=== PATIENT | female | born 1955 | race Caucasian/White ===

== ENCOUNTER 2016-10-22 09:18 | Emergency (ER) | payer MEDICARE, MEDICAID ==
[~2016-10-22] VITALS: Ht 162.6 cm; Wt 84.0 kg
[~2016-10-22 09:18] MED LIST: CARI250T PO; LEVO25TA2 PO; LEVO50TA PO; OXYC15TA PO
[2016-10-22] MEDS ORDERED: METHOCARBAMOL 750 MG TABLET PO ONE (10:00)
[2016-10-22] MEDS ORDERED: ONDANSETRON 2MG/ML, 2ML IVPush ONE (10:00)
[2016-10-22] MEDS ORDERED: GABA400C PO (10:00)
[2016-10-22] MEDS ORDERED: GABA800T2 PO (10:00)
[2016-10-22] MEDS ORDERED: SODIUM CHLORIDE FLUSH 10ML SYR IVF ONE (10:00)
[2016-10-22] MEDS ORDERED: KETOROLAC 30 MG/1 ML IVPush ONE (10:00)
[2016-10-22] MEDS ORDERED: HYDROmorphone 1 MG/ML, 1ML ONE (10:15)
[2016-10-22] MEDS ORDERED: KETOROLAC 30 MG/1 ML ONE (10:15)
[2016-10-22] MEDS ORDERED: ONDANSETRON 2MG/ML, 2ML ONE (10:15)
[2016-10-22] MEDS ORDERED: METHOCARBAMOL 750 MG TABLET ONE (10:16)
[2016-10-22] MEDS: HYDROmorphone 1 MG/ML, 1ML IVPush PRN ×2 (10:28→12:02)
[2016-10-22 13:42] VITALS: BP 134/79
== END 2016-10-22 13:45 | disposition home or self-care (01) ==
LOC: ED 11:48
DX: M51.36 Other intervertebral disc degeneration, lumbar region (principal); G89.29 Other chronic pain; F31.9 Bipolar disorder, unspecified; F43.10 Post-traumatic stress disorder, unspecified; Z87.891 Personal history of nicotine dependence; Z88.2 Allergy status to sulfonamides
CPT/HCPCS: 72148; 96374; 96375; 96376; 99284; J1170; J1885; J2405

== ENCOUNTER 2017-08-17 21:59 | Emergency (ER) | payer MEDICARE, MEDICAID ==
[~2017-08-17] VITALS: Ht 154.9 cm; Wt 87.8 kg
[~2017-08-17 21:59] MED LIST changes: +GABA400C PO; +GABA800T2 PO
[2017-08-17 22:01] VITALS: BP 181/133
[2017-08-17] MEDS ORDERED: MORPHINE SULFATE 4 MG/ML, 1ML IVPush PRN (22:30)
[2017-08-17] MEDS ORDERED: ONDANSETRON 2MG/ML, 2ML IVPush ONE (22:30)
[2017-08-17] MEDS ORDERED: SODIUM CHLORIDE 0.9% 1,000ML IVBOLUS ONE (22:30)
[2017-08-17 22:49] LABS: ALANINE AMINOTRANSFERASE 43 U/L (12-78); ALBUMIN 4.8 g/dL (3.4-5.0); ANION GAP 7 mmol/L (5-15); CALCIUM 9.1 mg/dL (8.5-10.1); CHLORIDE 107 mmol/L (98-107)
[2017-08-17 22:51] LABS: ALKALINE PHOSPHATASE 78 U/L (45-117); BILIRUBIN,TOTAL 0.5 mg/dL (0.2-1.0); CREATININE 0.87 mg/dL (0.55-1.02); TOTAL PROTEIN 8.2 g/dL (6.4-8.2)
[2017-08-17 23:07] LABS: BASOPHILS # (AUTO) 0.01 x10^3/uL (0-0.1); BASOPHILS % (AUTO) 0 % (0-1); EOSINOPHILS # (AUTO) 0.02 x10^3/uL (0-0.4); EOSINOPHILS % (AUTO) 0 % (1-7); LYMPHOCYTES # (AUTO) 0.74 x10^3/uL (1-3.4); LYMPHOCYTES % (AUTO) 10 % (22-44); MD SCAN; MEAN CORPUSCULAR HEMOGLOBIN 30.7 pg (27.0-34.8); MEAN CORPUSCULAR HGB CONC 33.9 g/dL (32.4-35.8); MEAN CORPUSCULAR VOLUME 90.7 fL (80-100); MEAN PLATELET VOLUME 9.3 fL (7.4-10.4); MONOCYTES # (AUTO) 0.12 x10^3/uL (0.2-0.8); MONOCYTES % (AUTO) 2 % (2-9); NEUTROPHILS # (AUTO) 6.73 x10^3/uL (1.8-6.8); NEUTROPHILS % (AUTO) 88 % (42-75); PLATELET COUNT 225 x10^3/uL (130-400); RED BLOOD COUNT 4.32 x10^6/uL (3.82-5.3); RED CELL DISTRIBUTION WIDTH 14.5 % (9.6-15.2)
[2017-08-17] MEDS ORDERED: MORPHINE SULFATE 4 MG/ML, 1ML ONE (23:21)
[2017-08-17] MEDS ORDERED: ONDANSETRON 2MG/ML, 2ML ONE (23:22)
== END 2017-08-18 00:08 | disposition home or self-care (01) ==
LOC: ED 23:59
DX: S39.012A Strain of muscle, fascia and tendon of lower back, initial encounter (principal); W10.9XXA Fall (on) (from) unspecified stairs and steps, initial encounter; Y93.89 Activity, other specified; Y92.009 Unspecified place in unspecified non-institutional (private) residence as the place of occurrence of the external cause; Y99.8 Other external cause status; S16.1XXA Strain of muscle, fascia and tendon at neck level, initial encounter
CPT/HCPCS: 36415; 72110; 72125; 80053; 85025; 96361; 96374; 96375; 99285; J2405; J7030

== ENCOUNTER → 2018-11-25 | Outpatient (CLI) | payer MEDICARE, MEDICAID ==
[~2018-11-25] MED LIST changes: +FENTANYL PF 100 MCG/2ML ONE; +FLUMAZENIL 0.1 MG/1 ML, 5ML ONE; -GABA800T2 PO; +GABA800T5 PO; +MIDAZOLAM 1 MG/ML, 5ML ONE; +NALOXONE 1 MG/ML, 2ML ONE
== END | disposition home or self-care (01) ==
LOC: RAD 12:28
PROVIDERS: ATTEND Nurse Practitioner Primary Care
DX: M47.812 Spondylosis without myelopathy or radiculopathy, cervical region (principal); M50.30 Other cervical disc degeneration, unspecified cervical region; M50.222 Other cervical disc displacement at C5-C6 level; M50.223 Other cervical disc displacement at C6-C7 level
CPT/HCPCS: 70551; 72050; 72141; 99156; 99157; J2250; J3010; J2310

== ENCOUNTER 2019-08-25 23:31 | Inpatient (IN) | payer MEDICARE, MEDICAID ==
[~2019-08-25] VITALS: Ht 162.6 cm; Wt 56.0 kg
[~2019-08-25 23:31] MED LIST changes: +ACID1TAB7 PO; +FAMO20TA7 PO; -FENTANYL PF 100 MCG/2ML ONE; -FLUMAZENIL 0.1 MG/1 ML, 5ML ONE; +HYDR25SU3 PR; +LORA-445 PO; +MAGN400T50 PO; +MEGE40TA3 PO; -MIDAZOLAM 1 MG/ML, 5ML ONE; -NALOXONE 1 MG/ML, 2ML ONE; +OXYC5TAB3 PO; +TRAZ50TA66 PO
[2019-08-25] MEDS ORDERED: HYDROmorphone 1 MG/ML, 1ML INJ ONE (23:46)
[2019-08-25 23:50] LABS: BASOPHILS # (AUTO) 0.03 x10^3/uL (0-0.1); BASOPHILS % (AUTO) 1 % (0-1); EOSINOPHILS # (AUTO) 0.17 x10^3/uL (0-0.4); EOSINOPHILS % (AUTO) 4 % (1-7); LYMPHOCYTES # (AUTO) 1.65 x10^3/uL (1-3.4); LYMPHOCYTES % (AUTO) 34 % (22-44); MD NO; MEAN CORPUSCULAR HEMOGLOBIN 31.7 pg (27.0-34.8); MEAN CORPUSCULAR HGB CONC 33.3 g/dL (32.4-35.8); MEAN CORPUSCULAR VOLUME 95.1 fL (80-100); MEAN PLATELET VOLUME 8.1 fL (7.4-10.4); MONOCYTES # (AUTO) 0.33 x10^3/uL (0.2-0.8); MONOCYTES % (AUTO) 7 % (2-9); NEUTROPHILS # (AUTO) 2.64 x10^3/uL (1.8-6.8); NEUTROPHILS % (AUTO) 55 % (42-75); PLATELET COUNT 269 x10^3/uL (130-400); RED BLOOD COUNT 3.87 x10^6/uL (3.82-5.3); RED CELL DISTRIBUTION WIDTH 15.9 % (9.6-15.2)
[2019-08-25] MEDS: HYDROmorphone 2 MG/ML, 1ML IVPush PRN (23:55)
[2019-08-26] LABS: ALANINE AMINOTRANSFERASE 14 U/L (12-78); ALBUMIN 3.9 g/dL (3.4-5.0); ANION GAP 8 mmol/L (5-15); CALCIUM 9.2 mg/dL (8.5-10.1); CHLORIDE 111 mmol/L (98-107); CREATININE 0.82 mg/dL (0.55-1.02)
[2019-08-26] MEDS ORDERED: SODIUM CHLORIDE 0.9% 1,000ML IVBOLUS ONE
[2019-08-26] MEDS ORDERED: SODIUM CHLORIDE FLUSH 10ML SYR IVF ONE
[2019-08-26] MEDS ORDERED: ONDANSETRON 2MG/ML, 2ML IVPush ONE
[2019-08-26 00:02] LABS: ALKALINE PHOSPHATASE 68 U/L (45-117); BILIRUBIN,TOTAL 0.3 mg/dL (0.2-1.0)
--- NOTE | 2019-08-26 00:19 | NUR ---
Assisted pt to bedside commode. Vitals monitors in place.
[2019-08-26 00:35] LABS: MICROSCOPIC INDICATED
[2019-08-26 00:42] LABS: CULTURE INDICATED? NO
[2019-08-26] MEDS ORDERED: OMNIPAQUE 350 MG/ML, 100ML BOTTLE ONE (00:46)
[2019-08-26 01:22] LABS: CLOSTRIDIUM DIFFICILE ANTIGEN NEGATIVE; CLOSTRIDIUM DIFFICILE TOXIN NEGATIVE (Negative)
[2019-08-26] MEDS ORDERED: HYDROmorphone 1 MG/ML, 1ML INJ ONE (01:26)
[2019-08-26] MEDS: HYDROmorphone 2 MG/ML, 1ML IVPush PRN (01:28)
--- NOTE | 2019-08-26 01:28 | NUR ---
Pt in jose angel, c/o pain 03/22. Medicated per SEP.
[2019-08-26] MEDS ORDERED: AMOX1TAB12 PO (02:37)
[2019-08-26] MEDS ORDERED: HYDR-826 PO (02:38)
[2019-08-26] MEDS ORDERED: CLON1TAB PO (02:39)
[2019-08-26 03:00] VITALS: BP 145/88
[2019-08-26] MEDS ORDERED: POLYETHYLENE GLYCOL 17 GM PACKET PO PRN (03:00)
[2019-08-26] MEDS ORDERED: ONDANSETRON ODT 4 MG PO PRN (03:00)
[2019-08-26] MEDS ORDERED: PROMETHAZINE 25 MG/ML, 1ML IM PRN (03:00)
[2019-08-26] MEDS ORDERED: DOCUSATE 100 MG CAPSULE PO PRN (03:00)
[2019-08-26] MEDS ORDERED: ONDANSETRON 2MG/ML, 2ML IVPush PRN (03:00)
[2019-08-26] MEDS ORDERED: hydrALAzine 20 MG/ML, 1ML IVPush PRN (03:00)
[2019-08-26] MEDS ORDERED: D5%-0.9% NACL 1,000 ML IV SCH (03:00)
[2019-08-26] MEDS: morphine SULFATE 10 MG/ML, 1ML IVPush PRN ×4 (03:23→14:25)
[2019-08-26] MEDS: ENOXAPARIN 40 MG/0.4 ML SQ SCH (03:25)
[2019-08-26 03:27] LABS: FREE T4 (FREE THYROXINE) 1.17 ng/dL (0.76-1.46)
[2019-08-26] MEDS: OXYcodone IR 5MG TABLET PO PRN ×4 (04:41→19:28)
[2019-08-26 04:48] LABS: MICROSCOPIC INDICATED
[2019-08-26 04:58] LABS: CULTURE INDICATED? NO
[2019-08-26 10:22] VITALS: BP 116/75
[2019-08-26] MEDS: D5%-0.45NACL+KCL 20MEQ 1,000 ML IV SCH ×2 (12:51→23:26)
[2019-08-26 16:49] VITALS: BP 130/76
[2019-08-26] MEDS: KETOROLAC 30 MG/1 ML IVPush SCH (17:58)
[2019-08-26] MEDS: ACETAMINOPHEN 500 MG TABLET PO SCH ×2 (17:58→21:25)
[2019-08-26 19:46] VITALS: BP 123/76
[2019-08-26] MEDS: TRAZODONE 50MG TABLET PO PRN (21:25)
[2019-08-26] MEDS: MORPHINE SULFATE 4 MG/ML, 1ML IVPush PRN (22:28)
[2019-08-27 00:19] VITALS: BP 114/70
[2019-08-27] MEDS: KETOROLAC 30 MG/1 ML IVPush SCH ×5 (00:24→23:56)
[2019-08-27] MEDS: OXYcodone IR 5MG TABLET PO PRN ×5 (02:47→20:43)
[2019-08-27] MEDS: ENOXAPARIN 40 MG/0.4 ML SQ SCH (03:00)
[2019-08-27 06:31] LABS: CHLORIDE 110 mmol/L (98-107)
[2019-08-27 06:42] LABS: ALANINE AMINOTRANSFERASE 8 U/L (12-78); ALBUMIN 3.1 g/dL (3.4-5.0); ALKALINE PHOSPHATASE 50 U/L (45-117); ANION GAP 6 mmol/L (5-15); BILIRUBIN,TOTAL 0.6 mg/dL (0.2-1.0); CALCIUM 8.6 mg/dL (8.5-10.1); CHOL/HDL RATIO 1.9; CHOLESTEROL, TOTAL 124 mg/dL (140-239); CREATININE 0.69 mg/dL (0.55-1.02); HDL CHOL % 53 % (28-40); HDL CHOLESTEROL (DIRECT) 66 mg/dL (40-60); LDL CHOLESTEROL,CALCULATED 42 mg/dL (54-169); LDL/HDL RATIO 0.6 (0.5-3.0); TOTAL PROTEIN 5.6 g/dL (6.4-8.2); TRIGLYCERIDES 81 mg/dL (50-200); VLDL CHOLESTEROL 16 mg/dL (0-25)
[2019-08-27 06:51] LABS: BASOPHILS # (AUTO) 0.04 x10^3/uL (0-0.1); BASOPHILS % (AUTO) 1 % (0-1); EOSINOPHILS % (AUTO) 7 % (1-7); LYMPHOCYTES # (AUTO) 1.61 x10^3/uL (1-3.4); LYMPHOCYTES % (AUTO) 37 % (22-44); MD SCAN; MEAN CORPUSCULAR HEMOGLOBIN 31.8 pg (27.0-34.8); MEAN CORPUSCULAR HGB CONC 33.3 g/dL (32.4-35.8); MEAN CORPUSCULAR VOLUME 95.6 fL (80-100); MEAN PLATELET VOLUME 8.3 fL (7.4-10.4); MONOCYTES # (AUTO) 0.29 x10^3/uL (0.2-0.8); MONOCYTES % (AUTO) 7 % (2-9); NEUTROPHILS % (AUTO) 48 % (42-75); PLATELET COUNT 209 x10^3/uL (130-400); RED BLOOD COUNT 3.23 x10^6/uL (3.82-5.3); RED CELL DISTRIBUTION WIDTH 15.9 % (9.6-15.2)
[2019-08-27] MEDS: LACTOBACILLUS CHEW TABLET PO SCH ×4 (08:30→20:02)
[2019-08-27] MEDS: D5%-0.45NACL+KCL 20MEQ 1,000 ML IV SCH ×2 (08:30→23:12)
[2019-08-27] MEDS: ACETAMINOPHEN 500 MG TABLET PO SCH ×3 (08:30→21:00)
[2019-08-27] MEDS: MORPHINE SULFATE 4 MG/ML, 1ML IVPush PRN ×2 (08:31→17:54)
[2019-08-27 08:36] VITALS: BP 133/81
[2019-08-27] MEDS: LOPERAMIDE 2 MG CAPSULE PO PRN (10:56)
[2019-08-27 13:52] VITALS: BP 122/77
[2019-08-27 20:00] VITALS: BP 132/80
[2019-08-27] MEDS: ACETAMINOPHEN 325 MG TABLET PO PRN (20:03)
[2019-08-27] MEDS: TRAZODONE 50MG TABLET PO PRN (23:57)
[2019-08-28 00:06] VITALS: BP 128/65
[2019-08-28] MEDS: ACETAMINOPHEN 325 MG TABLET PO PRN (00:56)
[2019-08-28] MEDS: OXYcodone IR 5MG TABLET PO PRN ×3 (00:56→09:36)
[2019-08-28] MEDS: ENOXAPARIN 40 MG/0.4 ML SQ SCH (02:04)
[2019-08-28] MEDS: MORPHINE SULFATE 4 MG/ML, 1ML IVPush PRN (02:12)
[2019-08-28] MEDS: LOPERAMIDE 2 MG CAPSULE PO PRN (05:09)
[2019-08-28 06:11] LABS: BASOPHILS # (AUTO) 0.05 x10^3/uL (0-0.1); BASOPHILS % (AUTO) 1 % (0-1); EOSINOPHILS # (AUTO) 0.28 x10^3/uL (0-0.4); EOSINOPHILS % (AUTO) 5 % (1-7); LYMPHOCYTES # (AUTO) 1.53 x10^3/uL (1-3.4); LYMPHOCYTES % (AUTO) 29 % (22-44); MD NO; MEAN CORPUSCULAR HEMOGLOBIN 32.4 pg (27.0-34.8); MEAN CORPUSCULAR HGB CONC 34.2 g/dL (32.4-35.8); MEAN CORPUSCULAR VOLUME 94.9 fL (80-100); MEAN PLATELET VOLUME 8.3 fL (7.4-10.4); MONOCYTES # (AUTO) 0.45 x10^3/uL (0.2-0.8); MONOCYTES % (AUTO) 9 % (2-9); NEUTROPHILS # (AUTO) 2.98 x10^3/uL (1.8-6.8); NEUTROPHILS % (AUTO) 56 % (42-75); PLATELET COUNT 204 x10^3/uL (130-400); RED BLOOD COUNT 3.28 x10^6/uL (3.82-5.3); RED CELL DISTRIBUTION WIDTH 15.2 % (9.6-15.2)
[2019-08-28] MEDS: LACTOBACILLUS CHEW TABLET PO SCH ×2 (06:16→09:36)
[2019-08-28] MEDS: KETOROLAC 30 MG/1 ML IVPush SCH ×2 (06:17→10:55)
[2019-08-28 06:22] LABS: ALBUMIN 3.2 g/dL (3.4-5.0); ANION GAP 5 mmol/L (5-15); CALCIUM 8.2 mg/dL (8.5-10.1); CHLORIDE 114 mmol/L (98-107)
[2019-08-28 06:25] LABS: ALANINE AMINOTRANSFERASE 11 U/L (12-78); ALKALINE PHOSPHATASE 56 U/L (45-117); BILIRUBIN,TOTAL 0.3 mg/dL (0.2-1.0); CREATININE 0.74 mg/dL (0.55-1.02); TOTAL PROTEIN 5.9 g/dL (6.4-8.2)
[2019-08-28 07:47] VITALS: BP 130/62
[2019-08-28] MEDS: ACETAMINOPHEN 500 MG TABLET PO SCH (09:00)
[2019-08-28] MEDS: D5%-0.45NACL+KCL 20MEQ 1,000 ML IV SCH (09:00)
[2019-08-28] MEDS ORDERED: ACET325T26 PO (09:19)
[2019-08-28] MEDS ORDERED: LOPE2CAP PO (09:19)
[2019-08-28] MEDS ORDERED: OXYC5TAB3 PO (09:19)
== END 2019-08-28 13:00 | disposition home health service (06) | DRG 641 ==
LOC: ED 08-26 01:48 → EDIP 08-26 02:18 → 4WST 08-26 02:50 → DCLOUNGE 08-28 12:51
PROVIDERS: ADMIT Internal Medicine; ATTEND Family Medicine
DX: E86.0 Dehydration (principal); F31.9 Bipolar disorder, unspecified; F41.1 Generalized anxiety disorder; F43.10 Post-traumatic stress disorder, unspecified; G62.9 Polyneuropathy, unspecified; M79.7 Fibromyalgia; M81.0 Age-related osteoporosis without current pathological fracture; Z79.2 Long term (current) use of antibiotics; Z90.49 Acquired absence of other specified parts of digestive tract; Z93.3 Colostomy status; Z88.2 Allergy status to sulfonamides; Z88.8 Allergy status to other drugs, medicaments and biological substances; R19.7 Diarrhea, unspecified
CPT/HCPCS: 36415; 74177; 80053; 80061; 81001; 83036; 83690; 83735; 84439; 84443; 85025; 87324; 89055; 99285; G0378; J1170; J1885; J7042; Q9967; J2270; J3480; J7030

== ENCOUNTER 2020-06-16 23:07 | Emergency (ER) | payer MEDICARE, MEDICAID ==
[~2020-06-16] VITALS: Ht 165.1 cm; Wt 50.0 kg
[~2020-06-16 23:07] MED LIST changes: +ACET325T26 PO; +AMOX1TAB12 PO; +CLON1TAB PO; +HYDR-826 PO; +LOPE2CAP PO; -OXYC15TA PO; +OXYC15TA3 PO
[2020-06-16] MEDS ORDERED: FENTANYL PF 100 MCG/2ML ONE (23:20)
[2020-06-16] MEDS: FENTANYL PF 100 MCG/2ML IVPush PRN ×2 (23:22→23:42)
[2020-06-16] MEDS ORDERED: SODIUM CHLORIDE FLUSH 10ML SYR IVF ONE (23:30)
--- NOTE | 2020-06-16 23:36 | NUR ---
Pt medicated per order. RR equal and unlabored. VSS. To xray via [facility]. Will re-evaluate pain upon return.
--- NOTE | 2020-06-17 00:40 | NUR ---
0000: report to MAITE [facility]
--- NOTE | 2020-06-17 01:15 | NUR ---
PT UP TO BEDSIDE TO COMMODE. VSS. WAITING FOR RADIOLOGY RESULTS. CALL LIGHT IN REACH
[2020-06-17 02:15] VITALS: BP 133/61
--- NOTE | 2020-06-17 02:22 | NUR ---
PT GIVEN DISCHARGE INSTRUCTIONS AND DAUGHTER CAME TO TAKE HOME
== END 2020-06-17 02:48 | disposition home or self-care (01) ==
LOC: ED 06-17 01:03
DX: S39.012A Strain of muscle, fascia and tendon of lower back, initial encounter (principal); S29.012A Strain of muscle and tendon of back wall of thorax, initial encounter; R94.31 Abnormal electrocardiogram [ECG] [EKG]; M19.90 Unspecified osteoarthritis, unspecified site; G43.909 Migraine, unspecified, not intractable, without status migrainosus; Z87.891 Personal history of nicotine dependence; W18.30XA Fall on same level, unspecified, initial encounter; Y93.89 Activity, other specified; Y92.009 Unspecified place in unspecified non-institutional (private) residence as the place of occurrence of the external cause; Y99.8 Other external cause status
CPT/HCPCS: 72072; 72110; 73552; 93005; 96374; 99284; J3010

== ENCOUNTER 2021-01-15 22:51 | Emergency (ER) | payer MEDICARE, MEDICAID ==
[~2021-01-15] VITALS: Ht 165.1 cm; Wt 51.9 kg
[~2021-01-15 22:51] MED LIST changes: -OXYC5TAB3 PO; +OXYC5TAB98 PO
[2021-01-15] MEDS ORDERED: HYDR-2214 PO (23:12)
--- NOTE | 2021-01-16 00:02 | NUR ---
report from break rn, pt nad, resting on gurney, appears comfortable, biba from home due to abdominal hernia and lower abdominal pain in the left lower quadrant. received fentanyl en route for pain. wctm. placed on spo2/bp monitoring, bed in lowest, rails engaged.
[2021-01-16] MEDS ORDERED: MORPHINE SULFATE 4 MG/ML, 1ML ONE ×2 (00:26→01:43)
[2021-01-16] MEDS ORDERED: ONDANSETRON 2MG/ML, 2ML ONE (00:26)
[2021-01-16] MEDS ORDERED: ONDANSETRON 2MG/ML, 2ML IVPush ONE (00:30)
[2021-01-16] MEDS: MORPHINE SULFATE 4 MG/ML, 1ML IVPush PRN ×2 (00:30→01:45)
--- NOTE | 2021-01-16 00:41 | NUR ---
pt medicated per mar for pain, assisted to bs commode, ua obtained and walked to lab. Patient is resting comfortably in bed. Bed in lowest, rails engaged, call light on lap. Vital Signs within normal limits. WCTM.
[2021-01-16 00:44] LABS: BASOPHILS % (AUTO) 1 % (0-1); EOSINOPHILS % (AUTO) 5 % (1-7); LYMPHOCYTES % (AUTO) 45 % (22-44); MEAN CORPUSCULAR HEMOGLOBIN 33.3 pg (27.0-34.8); MEAN CORPUSCULAR HGB CONC 33.5 g/dL (32.4-35.8); MEAN PLATELET VOLUME 8.2 fL (7.4-10.4); MONOCYTES % (AUTO) 8 % (2-9); NEUTROPHILS % (AUTO) 41 % (42-75); PLATELET COUNT 172 x10^3/uL (130-400); RED BLOOD COUNT 3.65 x10^6/uL (3.82-5.3); RED CELL DISTRIBUTION WIDTH 13.5 % (9.6-15.2)
[2021-01-16 00:56] LABS: ALANINE AMINOTRANSFERASE 19 U/L (12-78); ALBUMIN 3.7 g/dL (3.4-5.0); CALCIUM 8.2 mg/dL (8.5-10.1); CREATININE 0.66 mg/dL (0.55-1.02)
[2021-01-16 00:58] LABS: ALKALINE PHOSPHATASE 43 U/L (45-117); BILIRUBIN,TOTAL 0.4 mg/dL (0.2-1.0); TOTAL PROTEIN 6.1 g/dL (6.4-8.2)
[2021-01-16 01:04] LABS: ANION GAP 4 mmol/L (5-15); CHLORIDE 108 mmol/L (98-107)
[2021-01-16 01:09] LABS: MICROSCOPIC INDICATED
[2021-01-16] MEDS ORDERED: OMNIPAQUE 350 MG/ML, 100ML BOTTLE ONE (01:34)
--- NOTE | 2021-01-16 01:35 | NUR ---
PT RESTING ON GURNEY, BACK FROM CT AT THIS TIME, NAD, RESTING ON GURNEY, APPEARS COMFORABLE, VSS, NO OTHER CHANGES IN CONDITION, BED IN LOWEST, RAILS ENGAGED, CALL LIGHT ON LAP, WCTM.
[2021-01-16 02:57] VITALS: BP 126/70
== END 2021-01-16 03:10 | disposition home or self-care (01) ==
LOC: ED 01-16 02:48
DX: K59.00 Constipation, unspecified (principal); R10.84 Generalized abdominal pain; R19.7 Diarrhea, unspecified; R11.2 Nausea with vomiting, unspecified; M19.90 Unspecified osteoarthritis, unspecified site; G43.909 Migraine, unspecified, not intractable, without status migrainosus; Z87.891 Personal history of nicotine dependence
CPT/HCPCS: 36415; 74177; 80053; 81001; 83690; 85025; 87086; 96374; 96375; 96376; 99285; J2270; J2405; Q9967

== ENCOUNTER 2021-02-08 22:38 | Emergency (ER) | payer MEDICARE, MEDICAID ==
[~2021-02-08] VITALS: Ht 162.6 cm; Wt 54.5 kg
[~2021-02-08 22:38] MED LIST changes: +HYDR-2214 PO
[2021-02-08 23:06] LABS: BASOPHILS % (AUTO) 1 % (0-1); EOSINOPHILS % (AUTO) 2 % (1-7); LYMPHOCYTES % (AUTO) 24 % (22-44); MEAN CORPUSCULAR HGB CONC 34.6 g/dL (32.4-35.8); MEAN PLATELET VOLUME 9.1 fL (7.4-10.4); MONOCYTES % (AUTO) 9 % (2-9); NEUTROPHILS % (AUTO) 65 % (42-75); PLATELET COUNT 135 x10^3/uL (130-400); RED BLOOD COUNT 3.51 x10^6/uL (3.82-5.3); RED CELL DISTRIBUTION WIDTH 13.5 % (9.6-15.2)
[2021-02-08 23:18] LABS: ANION GAP 4 mmol/L (5-15); CALCIUM 7.7 mg/dL (8.5-10.1); CHLORIDE 109 mmol/L (98-107); CREATININE 0.48 mg/dL (0.55-1.02)
--- NOTE | 2021-02-08 23:27 | NUR ---
Pt assisted to bathroom via wheelchair. Pt able to stand and turn with slightly unsteady gait. Pt has generlized weakness and body aches.
[2021-02-08] MEDS ORDERED: MORPHINE SULFATE 4 MG/ML, 1ML IVPush PRN (23:30)
--- NOTE | 2021-02-08 23:37 | NUR ---
RN was unaware of pts arrival via EMS. Triage and VS are accurate for intial RN encounter and assessment. Pt brought in by EMS for c/o generlized weakness, sob, productive cough, body aches x3 days and pain at the site of her lower left sided abdominal hernia when she coughs. Pt denies positive covid contacts, is not vaccinated. Alert and oriented x4, GCS 15. Pt found by RN on supplemental O2 at 2Lpm via NC. Pt endorses sob, not in any distress, able to speak in full sentences.
[2021-02-08] MEDS ORDERED: MORPHINE SULFATE 4 MG/ML, 1ML ONE (23:40)
[2021-02-08 23:50] LABS: TROPONIN I < 0.015 ng/mL (0.000-0.045)
[2021-02-09 00:35] VITALS: BP 122/81
--- NOTE | 2021-02-09 01:02 | NUR ---
Patient/Caregiver given discharge instructions and they have confirmed that they understand the instructions. Patient ambulatory with steady gait. NAD, all questions answered appropriately, denies additional needs at this time. No personal belongings left in room after discharge.
== END 2021-02-09 01:04 | disposition home or self-care (01) ==
LOC: ED 23:00
DX: J20.9 Acute bronchitis, unspecified (principal); Z20.822 Contact with and (suspected) exposure to COVID-19; R05 Cough; R07.89 Other chest pain; M19.90 Unspecified osteoarthritis, unspecified site; F17.200 Nicotine dependence, unspecified, uncomplicated; Z86.39 Personal history of other endocrine, nutritional and metabolic disease
CPT/HCPCS: 36415; 71045; 80048; 82040; 83880; 84484; 85025; 96374; 99284; J2270; U0003; U0005